=== PATIENT | female | born 1985 | race Hispanic/Latino ===

== ENCOUNTER 2021-10-23 10:42 | Emergency (ER) | payer SELFPAY ==
[~2021-10-23] VITALS: Ht 149.9 cm; Wt 49.9 kg
[2021-10-23] MEDS ORDERED: NAPROSYN500 MG PO (11:11)
[2021-10-23] MEDS ORDERED: CLEOCIN HCL300 MG PO (11:11)
== END 2021-10-23 11:48 | disposition home or self-care (01) ==
LOC: ER 10:43
DX: L02.811 Cutaneous abscess of head [any part, except face] (principal)
CPT/HCPCS: 99282